=== PATIENT | male | born 2000 | race Two or more races ===

== ENCOUNTER → 2024-05-04 | Outpatient (BNVA) | payer MEDICAID, SELFPAY | END | disposition home or self-care (01) | PROVIDERS: PCP Nurse Practitioner Family; Referring Provider Nurse Practitioner Family; Visit Provider Nurse Practitioner Family | DX: Z23 Encounter for immunization (principal); E03.9 Hypothyroidism, unspecified; I10 Essential (primary) hypertension; R73.03 Prediabetes; M10.9 Gout, unspecified; T78.40XA Allergy, unspecified, initial encounter; E55.9 Vitamin D deficiency, unspecified; Z11.3 Encounter for screening for infections with a predominantly sexual mode of transmission | CPT/HCPCS: 90471; 90686; 96372; 99215; J3301 ==

== ENCOUNTER → 2024-05-18 | Outpatient (BNVA) | payer MEDICAID, SELFPAY | END | disposition home or self-care (01) | PROVIDERS: PCP Nurse Practitioner Family; Referring Provider Nurse Practitioner Family; Visit Provider Nurse Practitioner Family | DX: R06.00 Dyspnea, unspecified (principal); Z00.01 Encounter for general adult medical examination with abnormal findings; Q23.4 Hypoplastic left heart syndrome; M1A.9XX0 Chronic gout, unspecified, without tophus (tophi); T78.40XA Allergy, unspecified, initial encounter; E55.9 Vitamin D deficiency, unspecified; R73.03 Prediabetes; I10 Essential (primary) hypertension; E03.8 Other specified hypothyroidism; R07.9 Chest pain, unspecified | CPT/HCPCS: 81001; 93005; 99215 ==